=== PATIENT | female | born 1970 | race Asian ===

== ENCOUNTER 2021-01-12 18:43 | Inpatient (IN) | payer OTHER ==
[~2021-01-12] VITALS: Ht 149.9 cm; Wt 46.3 kg
[2021-01-12] MEDS ORDERED: methylPREDNISolone SOD SUCC 125 MG/2 ML VL IV ONE (19:00)
[2021-01-12] MEDS ORDERED: SODIUM CHLORIDE 0.9% 1,000 ML IV ONE (20:30)
[2021-01-12 20:39] LABS: Basophils # (auto) 0 10 ^3/uL (0-0.2); Basophils % (auto) 0.3 % (0.0-2.0); Eosinophils # (auto) 0.1 10 ^3/uL (0-0.8); Eosinophils % (auto) 0.6 % (0.0-7.0); Hematocrit 38.8 % (36.0-46.0); Lymphocytes # (auto) 0.5 10 ^3/uL (0.4-5.4); Lymphocytes % (auto) 3.7 % (10.0-50.0); Mean Corpuscular Hemoglobin 33.3 pg (28.0-32.0); Mean Corpuscular Hgb Conc. 33.6 g/dL (32.0-36.0); Mean Corpuscular Volume 99.1 fL (80.0-100.0); Monocytes # (auto) 0.5 10 ^3/uL (0-1.3); Monocytes % (auto) 3.8 % (0.0-12.0); Neutrophils # (auto) 11.6 10 ^3/uL (1.6-8.6); Neutrophils % (auto) 91.6 % (37.0-80.0); Red Blood Cells 3.91 10^6/uL (4.0-5.20); Red Cell Distribution Width 13.2 % (11.8-14.3); White Blood Cell 12.7 10^3/uL (4.4-10.8)
[2021-01-12 20:46] LABS: Anion Gap 16 (5-15); Blood Urea Nitrogen 23 mg/dL (7-18); Calcium 9.5 mg/dL (8.5-10.1); Carbon Dioxide 16 mmol/L (21-32); Chloride 100 mmol/L (98-107); Magnesium 2.5 mg/dL (1.6-2.6); Sodium 132 mmol/L (136-145)
[2021-01-12 20:52] LABS: Alanine Aminotransferase 29 U/L (13-56); Alkaline Phosphatase 303 U/L (45-117); Aspartate Aminotransferase 23 U/L (15-37); BUN/Creatinine Ratio 16.8; Bilirubin, Total 0.8 mg/dL (0.2-1.0); GFR African American 53 mL/min; GFR Non-African American 44 mL/min; Total Protein 7.8 g/dL (6.4-8.2)
[2021-01-12 21:07] LABS: INR 1.17 (0.9-1.15); Partial Thromboplastin Time 31.8 sec (23.6-33.0)
[2021-01-12] MEDS ORDERED: CHOLECALCIFEROL (VITD3) 2,000 UNIT CAP/TAB PO ONE (21:15)
[2021-01-12] MEDS ORDERED: ZINC SULFATE 220mg CAP or TAB PO ONE (21:15)
[2021-01-12] MEDS ORDERED: AZITHROMYCIN 500MG/ 250ML 250 ML IV ONE (21:15)
[2021-01-12] MEDS ORDERED: ASCORBIC ACID 500 MG TAB PO ONE (21:15)
[2021-01-12 21:23] LABS: Glucose 461 mg/dL (74-106)
[2021-01-12] MEDS ORDERED: SODIUM CHLORIDE 0.9% 1,000 ML IV SCH (22:45)
[2021-01-12] MEDS ORDERED: POTASSIUM CHLORIDE 40 MEQ, LIDOCAINE 1% (LOCAL ANESTH.) 4 ML in SODIUM CHL 0.9% 250 ML IV ONE (22:45)
[2021-01-12] MEDS ORDERED: DEXTROSE (50%) 50ML SYRG IV PRN (22:45)
[2021-01-12] MEDS ORDERED: NITROGLYCERIN 0.4 MG SL TAB SL PRN (22:45)
[2021-01-12] MEDS ORDERED: DOCUSATE SOD 100 MG CAP PO PRN (22:45)
[2021-01-12] MEDS ORDERED: MORPHINE SULFATE INJECTION 2 MG/ML SYRG IV PRN (22:45)
[2021-01-12] MEDS ORDERED: ONDANSETRON HCL 4 MG/2 ML VIAL IV PRN (22:45)
[2021-01-12] MEDS ORDERED: cefTRIAXone 1GM/50ML D5W 50 ML IV SCH (23:30)
[2021-01-12] MEDS ORDERED: ALBUMIN 25% 100 ML IV ONE (23:30)
[2021-01-13] MEDS ORDERED: POTASSIUM CHL 20MEQ/100ML 100 ML IV SCH
[2021-01-13] MEDS ORDERED: dilTIAZem 25 MG/5 ML VIAL IV ONE
[2021-01-13] MEDS ORDERED: SODIUM BICARBONATE 8.4 % INJ 50ML VIAL IV ONE
[2021-01-13 00:05] LABS: Urine Bacteria FEW /hpf (None Seen); Urine Blood 1+ /uL (Negative); Urine Mucus FEW (None Seen); Urine Specific Gravity 1.019 (1.001-1.035); Urine WBC 40 /hpf (0 - 5)
[2021-01-13] MEDS ORDERED: LORazepam 2MG/ML-1ML VIAL IV PRN (00:15)
[2021-01-13] MEDS ORDERED: InsuLIN REG 1unit/0.01ml Soln (100units/ml) ONE (00:24)
[2021-01-13] MEDS ORDERED: HEPARIN SODIUM (PORCINE) 5000 UNITS/ML 1ML VIAL ONE (00:58)
[2021-01-13 01:08] VITALS: BP 166/66
[2021-01-13] MEDS ORDERED: ETOMIDATE (2MG/ML) 20ML VIAL IV ONE ×2 (01:15→01:30)
[2021-01-13] MEDS ORDERED: HEPARIN SODIUM (PORCINE) 5000 UNITS/ML 1ML VIAL SC ONE (01:15)
[2021-01-13] MEDS ORDERED: SUCCINYLCHOLINE CHLORIDE 20 MG/ML 10ML VIAL IV ONE ×2 (01:15→01:30)
[2021-01-13] MEDS ORDERED: LABETALOL HCL 5 MG/ML 4ML SYRINGE IV PRN (01:15)
[2021-01-13] MEDS ORDERED: MIDAZOLAM DRIP 50 mg/50mL 50 ML IV ONE (01:15)
[2021-01-13 01:20] VITALS: BP 150/83
[2021-01-13] MEDS ORDERED: NOREPINEPHRINE 8 MG/250ML KIT 250 ML IV SCH (01:30)
[2021-01-13] MEDS ORDERED: MIDAZOLAM DRIP 50 mg/50mL 50 ML IV SCH (01:30)
[2021-01-13] MEDS ORDERED: PROPOFOL 100 ML IV ONE (01:53)
[2021-01-13] MEDS ORDERED: fentaNYL Drip 2500mCg/250mlNS 250 ML IV SCH (02:00)
[2021-01-13] MEDS ORDERED: PROPOFOL 100 ML IV SCH (02:00)
[2021-01-13 02:45] VITALS: BP 107/68
[2021-01-13] MEDS ORDERED: ACETAMINOPHEN 650 MG RECT SUPP PR PRN (02:45)
[2021-01-13] MEDS ORDERED: SODIUM BICARBONATE 8.4% INJ 50ML SYRINGE IV ONE (03:06)
[2021-01-13] MEDS ORDERED: ATROPINE SULF 1 MG/10ml SYR IV ONE (03:06)
[2021-01-13] MEDS ORDERED: EPINEPHrine HCL 1 MG/10 ML SYRG IV ONE (03:06)
[2021-01-13] MEDS ORDERED: methylPREDNISolone SOD SUCC 40 MG/ML VL IV SCH (06:00)
[2021-01-13] MEDS ORDERED: ACCU-CHEK COMFORT CURVE STRIP VI SCH (07:00)
[2021-01-13] MEDS ORDERED: InsuLIN REG 1unit/0.01ml Soln (100units/ml) SC SCH ×2 (07:00→22:00)
[2021-01-13] MEDS ORDERED: HEPARIN SODIUM (PORCINE) 5000 UNITS/ML 1ML VIAL SC SCH (10:00)
[2021-01-13] MEDS ORDERED: FAMOTIDINE (10MG/ML) 2ML VL IV SCH (10:00)
[2021-01-13] MEDS ORDERED: dilTIAZem 120MG ER CAP PO SCH (10:00)
[2021-01-13] MEDS ORDERED: MULTIPLE VITAMIN TAB PO SCH (10:00)
[2021-01-13] MEDS ORDERED: ASCORBIC ACID 500 MG TAB PO SCH (10:00)
[2021-01-13] MEDS ORDERED: ENOXAPARIN SOD 30 MG/0.3 ML SYRINGE SC SCH (10:00)
[2021-01-13] MEDS ORDERED: ZINC SULFATE 220mg CAP or TAB PO SCH (10:00)
[2021-01-13] MEDS ORDERED: AZITHROMYCIN 500MG/ 250ML 250 ML IV SCH (22:00)
== END 2021-01-13 03:07 | DRG 133 ==
LOC: ER 18:45 → TELE 22:39
PROVIDERS: ADMIT Nurse Practitioner Family; ATTEND Nurse Practitioner Family
PROC: 5A12012 Performance of Cardiac Output, Single, Manual (ICD-10-PCS; principal; 2021-01-12)
PROC: 5A1935Z Respiratory Ventilation, Less than 24 Consecutive Hours (ICD-10-PCS; 2021-01-12)
PROC: 5A09357 Assistance with Respiratory Ventilation, Less than 24 Consecutive Hours, Continuous Positive Airway Pressure (ICD-10-PCS; 2021-01-12)
PROC: 0BH17EZ Insertion of Endotracheal Airway into Trachea, Via Natural or Artificial Opening (ICD-10-PCS; 2021-01-12)
DX: J96.00 Acute respiratory failure, unspecified whether with hypoxia or hypercapnia (principal); J12.9 Viral pneumonia, unspecified; I95.9 Hypotension, unspecified; D69.6 Thrombocytopenia, unspecified; E88.09 Other disorders of plasma-protein metabolism, not elsewhere classified; F17.210 Nicotine dependence, cigarettes, uncomplicated; F41.9 Anxiety disorder, unspecified; I49.3 Ventricular premature depolarization; N28.9 Disorder of kidney and ureter, unspecified; N39.0 Urinary tract infection, site not specified; R00.0 Tachycardia, unspecified; R73.9 Hyperglycemia, unspecified; Z90.49 Acquired absence of other specified parts of digestive tract; Z98.51 Tubal ligation status
CPT/HCPCS: 31500; 36415; 36600; 71045; 80053; 81001; 82010; 82728; 82805; 82962; 83605; 83735; 83880; 84484; 85025; 85379; 85610; 85730; 86141; 87040; 87077; 87086; 87088; 87186; 87426; 92950; 93005; 94002; 94660; 96365; 96366; 96367; 96372; 96375; 99291; G0378; J0330; J0696; J1815; J2001; J2250; J2704; J3480; J3490; P9047